=== PATIENT | male | born 1995 | race Hispanic/Latino ===

== ENCOUNTER 2019-01-24 12:06 | Emergency (ER) | payer OTHER ==
[~2019-01-24] VITALS: Ht 177.8 cm; Wt 99.8 kg
[2019-01-24] MEDS ORDERED: PROMETHAZINE HC25 M1 PO (17:54)
[2019-01-24] MEDS ORDERED: ONDANSETRON ODT8 MG PO (17:54)
[2019-01-24] MEDS ORDERED: CATAPRES0.2 MG PO (17:54)
== END 2019-01-24 18:17 | disposition home or self-care (01) ==
LOC: ED 12:06
DX: K29.70 Gastritis, unspecified, without bleeding (principal); F11.23 Opioid dependence with withdrawal; F17.200 Nicotine dependence, unspecified, uncomplicated
CPT/HCPCS: 76705; 80053; 81001; 83690; 83735; 85025; 99284-25; 99406; C9113; J1170; J2550; J3480; J7030